=== PATIENT | male | born 1980 | race African-American/Black ===

== ENCOUNTER 2017-03-28 11:40 | Inpatient (IN) | payer MEDICAID ==
[~2017-03-28] VITALS: Ht 172.7 cm; Wt 76.2 kg
[~2017-03-28 11:40] MED LIST: FURO80TA PO; POTA20PO13 PO; PRED-188 PO
[2017-03-28] MEDS ORDERED: HYDROmorphone HCL 2 MG/ML VL IV ONE (14:30)
[2017-03-28] MEDS ORDERED: ONDANSETRON HCL 4 MG/2 ML VIAL IV ONE (14:30)
[2017-03-28] MEDS ORDERED: SODIUM CHLORIDE 0.9% 1,000 ML IVB ONE (14:30)
[2017-03-28 15:05] LABS: Basophils # (auto) 0 uL; Basophils % (auto) 0.3 % (0.0-2.0); CONDITION Y; Eosinophils # (auto) 0.6 uL; Eosinophils % (auto) 5.1 % (0.0-7.0); Hematocrit 39.3 % (41.0-53.0); Hemoglobin 13.1 g/dL (13.5-17.5); Lymphocytes # (auto) 2.7 uL; Lymphocytes % (auto) 22.2 % (10.0-50.0); Mean Corpuscular Hemoglobin 29.5 pg (28.0-32.0); Mean Corpuscular Hgb Conc. 33.3 g/dL (32.0-36.0); Mean Corpuscular Volume 88.6 fL (80.0-100.0); Mean Platelet Volume 8.8 fL (7.4-10.4); Monocytes # (auto) 0.5 uL; Neutrophils # (auto) 8.3 uL; Neutrophils % (auto) 68.4 % (37.0-80.0); Platelet Count (auto) 323 10^3/uL (140-450); Red Cell Distribution Width 14.7 % (11.6-16.0); SUSPECT SEE PRINTOUT; White Blood Cell 12.1 10^3/uL (4.4-10.8)
[2017-03-28 15:24] LABS: Albumin 0.8 g/dL (3.4-5.0); Calcium 7.3 mg/dL (8.5-10.1)
[2017-03-28 15:27] LABS: Bilirubin, Total 0.2 mg/dL (0.2-1.0); Total Protein 4.7 g/dL (6.4-8.2)
[2017-03-28 15:38] LABS: Potassium 2.1 mmol/L (3.5-5.1)
[2017-03-28] MEDS ORDERED: POTASSIUM CHL 20MEQ/100ML 100 ML IV ONE (15:45)
[2017-03-28] MEDS ORDERED: NITROGLYCERIN 0.4 MG SL TAB SL PRN (17:45)
[2017-03-28] MEDS ORDERED: VANCOMYCIN PER PHARMACY 0 MG IV SCH (17:45)
[2017-03-28] MEDS ORDERED: MORPHINE SULF INJ 2 MG/ML SYRINGE 1ML IV PRN (17:45)
[2017-03-28] MEDS ORDERED: predniSONE 20 MG TAB PO ONE (17:45)
[2017-03-28] MEDS ORDERED: ONDANSETRON HCL 4 MG/2 ML VIAL IV PRN (17:45)
[2017-03-28] MEDS ORDERED: DOCUSATE SOD 100 MG CAP PO PRN (17:45)
[2017-03-28] MEDS ORDERED: cefTRIAXone 1GM/50ML D5W 50 ML IV ONE (17:45)
[2017-03-28] MEDS ORDERED: TEMAZEPAM 15 MG CAP PO PRN (17:45)
[2017-03-28] MEDS ORDERED: cloNIDine HCL 0.1 MG TAB PO PRN (18:00)
[2017-03-28] MEDS ORDERED: POTASSIUM CHL 20 Meq TABLET PO ONE ×2 (18:00→23:30)
[2017-03-28] MEDS: SODIUM CHLORIDE 0.9% 1,000 ML IV SCH (19:49)
[2017-03-28] MEDS: BOOST PLUS 8 ounce PO SCH ×2 (19:49→22:00)
[2017-03-28] MEDS: FUROSEMIDE 40 MG TAB PO SCH (19:49)
[2017-03-28] MEDS: MORPHINE SULF INJ 2 MG/ML SYRINGE 1ML IV PRN (19:54)
[2017-03-28] MEDS ORDERED: PNEUMOCOCCAL VACC POLYS 25 MCG/0.5 ML VIAL IM ONE (21:15)
[2017-03-28] MEDS: VANCOMYCIN 1GM/250ML D5W 250 ML IV SCH (21:18)
[2017-03-28 22:00] VITALS: BP 123/74
[2017-03-28] MEDS: FAMOTIDINE 20 MG TAB PO SCH (22:18)
[2017-03-28] MEDS: POTASSIUM CHL 20 Meq TABLET PO SCH (22:18)
[2017-03-28 22:22] LABS: Calcium 7.4 mg/dL (8.5-10.1)
[2017-03-28 22:23] LABS: Potassium 2.2 mmol/L (3.5-5.1)
[2017-03-29] VITALS (7 sets, daily range): BP systolic 110–137; BP diastolic 74–87
[2017-03-29] MEDS: MORPHINE SULF INJ 2 MG/ML SYRINGE 1ML IV PRN ×3 (00:25→10:18)
[2017-03-29 02:16] LABS: BUN/Creatinine Ratio 16.1
[2017-03-29] MEDS: SODIUM CHLORIDE 0.9% 1,000 ML IV SCH ×2 (04:31→10:18)
[2017-03-29 05:37] LABS: Basophils # (auto) 0.1 uL; Basophils % (auto) 0.5 % (0.0-2.0); CONDITION Y; Eosinophils # (auto) 0.1 uL; Eosinophils % (auto) 0.6 % (0.0-7.0); Hematocrit 40.6 % (41.0-53.0); Hemoglobin 13.3 g/dL (13.5-17.5); Lymphocytes # (auto) 1.8 uL; Lymphocytes % (auto) 14.7 % (10.0-50.0); Mean Corpuscular Hemoglobin 29.8 pg (28.0-32.0); Mean Corpuscular Hgb Conc. 32.8 g/dL (32.0-36.0); Mean Corpuscular Volume 90.8 fL (80.0-100.0); Mean Platelet Volume 9.6 fL (7.4-10.4); Monocytes # (auto) 0.1 uL; Monocytes % (auto) 0.7 % (0.0-12.0); Neutrophils # (auto) 10.4 uL; Neutrophils % (auto) 83.5 % (37.0-80.0); Platelet Count (auto) 335 10^3/uL (140-450); Red Cell Distribution Width 14.8 % (11.6-16.0); White Blood Cell 12.4 10^3/uL (4.4-10.8)
[2017-03-29] MEDS: BOOST PLUS 8 ounce PO SCH ×4 (06:16→22:15)
[2017-03-29] MEDS: FUROSEMIDE 40 MG TAB PO SCH ×2 (06:16→18:16)
[2017-03-29] MEDS: VANCOMYCIN 1GM/250ML D5W 250 ML IV SCH (06:16)
[2017-03-29 08:44] LABS: Albumin 0.7 g/dL (3.4-5.0); Alkaline Phosphatase 76 U/L (45-117); Anion Gap 12 (5-15); Aspartate Aminotransferase 27 U/L (15-37); BUN/Creatinine Ratio 15.8; Bilirubin, Total < 0.1 mg/dL (0.2-1.0); Blood Urea Nitrogen 21 mg/dL (7-18); Calcium 7.2 mg/dL (8.5-10.1); Carbon Dioxide 15 mmol/L (21-32); Chloride 113 mmol/L (98-107); GFR African American 78 mL/min; GFR Non-African American 65 mL/min; Glucose 109 mg/dL (74-106); Sodium 140 mmol/L (136-145); Total Protein 4.6 g/dL (6.4-8.2)
[2017-03-29 08:46] LABS: Potassium 2.5 mmol/L (3.5-5.1)
[2017-03-29] MEDS ORDERED: predniSONE 20 MG TAB PO SCH (10:00)
[2017-03-29] MEDS: FAMOTIDINE 20 MG TAB PO SCH ×2 (10:17→22:18)
[2017-03-29] MEDS: POTASSIUM CHL 20 Meq TABLET PO SCH (10:17)
[2017-03-29] MEDS: MULTIPLE VITAMIN TAB PO SCH (10:17)
[2017-03-29] MEDS: cefTRIAXone 1GM/50ML D5W 50 ML IV SCH (10:20)
[2017-03-29] MEDS ORDERED: SOD CHL 0.9%/ KCL 40MEQ 1,000 ML IV SCH (11:00)
[2017-03-29 11:37] LABS: Magnesium 2.4 mg/dL (1.6-2.6)
[2017-03-29] MEDS: HYDROmorphone HCL 2 MG/ML VL IV PRN ×3 (14:03→23:36)
[2017-03-29] MEDS: predniSONE 20 MG TAB PO SCH ×2 (14:28→22:17)
[2017-03-29] MEDS ORDERED: POTASSIUM CHL 20 Meq TABLET PO ONE ×6 (14:30→20:00)
[2017-03-29 14:40] LABS: Urine Bilirubin Negative (Negative); Urine Blood 1+ /uL (Negative); Urine Color Yellow (Yellow); Urine Glucose 3+ mg/dL (Normal); Urine Ketone Negative (Negative); Urine Nitrite Negative (Negative); Urine RBC 1 /hpf (0 - 3); Urine Urobilinogen Normal (Negative); Urine pH 7.5 (5.0-8.0)
[2017-03-30] MEDS: HYDROmorphone HCL 2 MG/ML VL IV PRN ×4 (04:11→19:59)
[2017-03-30 05:00] VITALS: BP 134/96
[2017-03-30] MEDS: predniSONE 20 MG TAB PO SCH ×3 (05:02→21:36)
[2017-03-30] MEDS: FUROSEMIDE 40 MG TAB PO SCH ×2 (05:04→17:47)
[2017-03-30] MEDS: BOOST PLUS 8 ounce PO SCH ×4 (06:00→21:36)
[2017-03-30 07:30] VITALS: BP 116/84
[2017-03-30 09:00] VITALS: BP 116/84
[2017-03-30 09:35] LABS: Basophils # (auto) 0 uL; Basophils % (auto) 0.1 % (0.0-2.0); CONDITION Y; Eosinophils # (auto) 0 uL; Hematocrit 35.8 % (41.0-53.0); Hemoglobin 11.8 g/dL (13.5-17.5); Lymphocytes # (auto) 1.2 uL; Lymphocytes % (auto) 7.9 % (10.0-50.0); Mean Corpuscular Hemoglobin 29.6 pg (28.0-32.0); Mean Corpuscular Volume 89.9 fL (80.0-100.0); Mean Platelet Volume 8.9 fL (7.4-10.4); Monocytes # (auto) 0.3 uL; Monocytes % (auto) 2.1 % (0.0-12.0); Neutrophils # (auto) 13.3 uL; Neutrophils % (auto) 89.9 % (37.0-80.0); Platelet Count (auto) 371 10^3/uL (140-450); Red Cell Distribution Width 14.4 % (11.6-16.0); White Blood Cell 14.8 10^3/uL (4.4-10.8)
[2017-03-30] MEDS: cefTRIAXone 1GM/50ML D5W 50 ML IV SCH (09:40)
[2017-03-30] MEDS: MULTIPLE VITAMIN TAB PO SCH (09:49)
[2017-03-30 09:53] LABS: BUN/Creatinine Ratio 13.5; Calcium 7.4 mg/dL (8.5-10.1); Phosphorus 4.9 mg/dL (2.5-4.90)
[2017-03-30] MEDS: FAMOTIDINE 20 MG TAB PO SCH ×2 (09:56→21:36)
[2017-03-30 09:58] LABS: Potassium 2.5 mmol/L (3.5-5.1)
[2017-03-30] MEDS ORDERED: POTASSIUM CHL 20 Meq TABLET PO ONE (11:45)
[2017-03-30] MEDS: POTASSIUM CHL 20 Meq TABLET PO SCH ×3 (12:00→19:59)
[2017-03-30 13:00] VITALS: BP 129/82
[2017-03-30 17:00] VITALS: BP 140/107
[2017-03-30 20:14] LABS: Urine Bilirubin Negative (Negative); Urine Blood 2+ /uL (Negative); Urine Color Yellow (Yellow); Urine Glucose 4+ mg/dL (Normal); Urine Ketone Negative (Negative); Urine Mucus FEW (None Seen); Urine Nitrite Negative (Negative); Urine RBC <1 /hpf (0 - 3); Urine Squamous Epithelial Cell FEW /hpf (<5); Urine Urobilinogen Normal (Negative)
[2017-03-30 22:00] VITALS: BP 127/96
[2017-03-31 05:30] VITALS: BP 129/98
[2017-03-31] MEDS: predniSONE 20 MG TAB PO SCH (06:11)
[2017-03-31] MEDS: BOOST PLUS 8 ounce PO SCH ×2 (06:11→12:19)
[2017-03-31] MEDS: FUROSEMIDE 40 MG TAB PO SCH (06:12)
[2017-03-31 09:00] VITALS: BP 142/103
[2017-03-31] MEDS: HYDROmorphone HCL 2 MG/ML VL IV PRN (09:16)
[2017-03-31] MEDS: FAMOTIDINE 20 MG TAB PO SCH (09:17)
[2017-03-31] MEDS: cefTRIAXone 1GM/50ML D5W 50 ML IV SCH (09:17)
[2017-03-31] MEDS: MULTIPLE VITAMIN TAB PO SCH (09:17)
[2017-03-31] MEDS ORDERED: POLYETHYLENE GLYCOL 17 GM PWDR PO PRN (09:45)
[2017-03-31] MEDS ORDERED: PANT40TA2 PO (09:55)
[2017-03-31] MEDS ORDERED: POTA20TA53 PO (09:55)
[2017-03-31 12:19] LABS: BUN/Creatinine Ratio 12.9; Calcium 7.2 mg/dL (8.5-10.1); Potassium 3.9 mmol/L (3.5-5.1)
== END 2017-03-31 13:02 | disposition home or self-care (01) | DRG 249 ==
LOC: ER 11:40 → TELE 11:41 → TELE-WESTW 20:35
PROVIDERS: ADMIT Internal Medicine; ATTEND Internal Medicine
DX: K52.9 Noninfective gastroenteritis and colitis, unspecified (principal); E43 Unspecified severe protein-calorie malnutrition; R18.8 Other ascites; N18.3 Chronic kidney disease, stage 3 (moderate); E86.0 Dehydration; I12.9 Hypertensive chronic kidney disease with stage 1 through stage 4 chronic kidney disease, or unspecified chronic kidney disease; E87.6 Hypokalemia; D63.8 Anemia in other chronic diseases classified elsewhere; E78.5 Hyperlipidemia, unspecified; Z23 Encounter for immunization; D17.1 Benign lipomatous neoplasm of skin and subcutaneous tissue of trunk; E83.51 Hypocalcemia; K42.9 Umbilical hernia without obstruction or gangrene; M54.5 Low back pain; F19.10 Other psychoactive substance abuse, uncomplicated; K59.00 Constipation, unspecified; Z82.49 Family history of ischemic heart disease and other diseases of the circulatory system; Z83.3 Family history of diabetes mellitus; Z87.441 Personal history of nephrotic syndrome; Z88.1 Allergy status to other antibiotic agents; Z68.25 Body mass index [BMI] 25.0-25.9, adult
CPT/HCPCS: 36415; 74176; 80048; 80053; 80061; 80307; 81001; 82570; 83735; 84100; 84156; 84300; 84550; 85025; 87086; 94761; 96361; 96365; 96367; 96375; J0696; J2405; J3480